=== PATIENT | female | born 1965 | race Caucasian/White ===

== ENCOUNTER → 2019-11-12 | Outpatient (CLI) | payer MEDICAID, OTHER ==
--- NOTE | 2019-11-12 11:39 | KCIC ---
Bilateral digital screening mammograms: Reason for examination: Routine screening. Comparison is made to previous study dated 09/14/2014. Interpretation is made with the benefit of CAD. The skin and nipples show no abnormalities. No abnormal lymph nodes are seen. Bilateral breast implants remain present. The breast parenchyma is predominantly fatty. (Breast density: Category A.) There are no dominant masses, suspicious calcifications or architectural distortions. Impression: No evidence of malignancy. Recommend routine screening. BI-RADS Category 1: Negative. "Our facility is accredited by the [employer] Mammography [employer]." This patient's information has been entered into a reminder system for the patient to be notified with the results of her examination and a target date for the next mammogram. Electronically signed by: Kalani Lazaro MD (11/12/2019 11:36 AM) [id number]
== END | disposition home or self-care (01) ==
LOC: KCIC MAMMO 10:36
PROVIDERS: ATTEND Internal Medicine
DX: Z12.31 Encounter for screening mammogram for malignant neoplasm of breast (principal)
CPT/HCPCS: 77067

== ENCOUNTER → 2021-06-07 | Outpatient (CLI) | payer OTHER ==
--- NOTE | 2021-06-07 10:15 | KCIC ---
EXAM: Lumbar spine MRI without contrast. HISTORY: Pain. TECHNIQUE: Multiplanar, multisequence magnetic resonance imaging of the lumbar spine was performed wi thout contrast. COMPARISON: None. FINDINGS: There is no listhesis. The vertebral bodies are normal in height. There is mild disc desicc ation at multiple levels. There is no suspicious osseous lesion. There is no fracture. The conus term inates at T12. There is a small simple cyst within the posterior mid zone of the left kidney. Follow- up is not routinely performed for simple cysts. At L1-L2, there is a minimal disc bulge. There is no stenosis. At L2-L3, there is no stenosis. At L3-L4, there is a shallow broad-based left foraminal to extra foraminal disc protrusion superimpos ed on a minimal disc bulge. There is minimal left foraminal stenosis and suspected abutment of the ex iting left L3 nerve root. At L4-L5, there is a minimal disc bulge. There is no stenosis. At L5-S1, there is a minimal disc bulge. There is no stenosis. IMPRESSION: 1. Minimal to mild degenerative change involving the lumbar spine, described above. This is associate d with minimal left foraminal stenosis and suspected abutment of the exiting left L3 nerve root at L3 -L4. 2. No acute finding. Electronically signed by: Griselda Bustos MD (06/07/2021 10:13 AM) [id number]
== END ==
LOC: KCIC MRI 09:02
PROVIDERS: ATTEND Physician Assistant
DX: M47.816 Spondylosis without myelopathy or radiculopathy, lumbar region (principal); N28.1 Cyst of kidney, acquired
CPT/HCPCS: 72148